=== PATIENT | male | born 1955 | race African-American/Black ===

== ENCOUNTER 2021-02-10 08:22 | Inpatient (IN) | payer OTHER, SELFPAY ==
[2021-02-10] MEDS ORDERED: Lidocaine 1% w/Epinephrine 1:100K 20 ML VIAL ONE (09:59)
[2021-02-10] MEDS ORDERED: Bacitracin 1 PK ONE (10:23)
[2021-02-10] MEDS ORDERED: Acetaminophen 500 MG TAB ONE (10:27)
[2021-02-10] MEDS ORDERED: Ketorolac Tromethamine 30 MG/ML VIAL ONE (10:27)
[2021-02-10] MEDS ORDERED: Ondansetron ODT 4 MG TAB PO PRN (10:50)
[2021-02-10] MEDS ORDERED: Dextrose 5% in Water 1,000 ML IV PRN (10:50)
[2021-02-10] MEDS ORDERED: hydrALAZINE 20 MG/ML VIAL SLOW IVP PRN (10:50)
[2021-02-10] MEDS ORDERED: Dextrose 50% Abboject 50 ML SYRINGE SLOW IVP PRN (10:50)
[2021-02-10] MEDS ORDERED: Ondansetron PF 4 MG/2 ML Vial IVP PRN (10:50)
[2021-02-10] MEDS ORDERED: Rib Fracture Protocol PO SCH (11:00)
[2021-02-10 11:33] LABS: #Lymphocytes 0.8 thou/uL (1.20-3.40); #Monocytes 0.7 thou/uL (0.11-0.59); #Neutrophils 6.9 thou/uL (1.40-6.50); %Basophils 0.2 % (0.0-1.0); %Eosinophils 0.3 % (0.0-10.0); %Lymphocytes 9.1 % (21.0-51.0); %Monocytes 8.7 % (0.0-10.0); %Neutrophils 81.7 % (42.0-75.0); Hemoglobin 14.4 g/dL (14.0-18.0); Mean Corpuscular Hemoglobin 28.8 pg (27.0-31.0); Mean Corpuscular Volume 90.1 fL (78.0-98.0); Mean Platelet Volume 10.9 fL (7.4-10.4); Platelet Count 124 thou/uL (130-400); RBC Distribution Width 12.6 % (11.5-14.5); Red Blood Cell (RBC) Count 5.02 mill/uL (4.70-6.10); White Blood Cell (WBC) Count 8.5 thou/uL (4.8-10.8)
[2021-02-10 11:59] LABS: ALT (SGPT) 19 U/L (8-55); AST (SGOT) 46 U/L (5-34); Albumin 3.7 g/dL (3.4-4.8); Alkaline Phosphatase 63 U/L (40-110); Anion Gap 12 mmol/L (10-20); BUN (Urea Nitrogen) 8 mg/dL (8.4-25.7); Bilirubin, Total 0.7 mg/dL (0.2-1.2); Calc. Creatinine Clearance 0 mL/min (70-130); Calcium 8.4 mg/dL (7.8-10.44); Carbon Dioxide 25 mmol/L (23-31); Chloride 104 mmol/L (98-107); Globulin 2.7 g/dL (2.4-3.5); Glucose 124 mg/dL (80-115); Magnesium 1.9 mg/dL (1.6-2.6); Phosphorus 3.1 mg/dL (2.3-4.7); Potassium 4.6 mmol/L (3.5-5.1); Protein, Total 6.4 g/dL (5.8-8.1); Sodium 136 mmol/L (136-145)
[2021-02-10] MEDS ORDERED: Cyclobenzaprine 10 MG TAB PO PRN ×2 (12:30)
[2021-02-10] MEDS ORDERED: Ibuprofen 600 MG TAB PO SCH (14:00)
[2021-02-10] MEDS ORDERED: Gabapentin 100 MG CAP PO SCH (15:00)
[2021-02-10] MEDS: Gabapentin 300 MG CAP PO SCH ×2 (15:55→21:10)
[2021-02-10] MEDS ORDERED: traMADol HCl 50 MG TAB PO SCH (18:00)
[2021-02-10] MEDS ORDERED: Ibuprofen 800 MG TAB PO SCH (18:00)
[2021-02-10] MEDS: Ibuprofen 200 MG TAB PO SCH ×2 (18:02→23:53)
[2021-02-10] MEDS: Acetaminophen 500 MG TAB PO SCH ×2 (18:02→23:53)
[2021-02-10] MEDS: traMADol HCl 50 MG TAB PO SCH ×2 (18:03→23:54)
[2021-02-10] MEDS: Senokot S 8.6-50 MG TAB PO SCH (21:10)
[2021-02-10] MEDS: Famotidine 20 MG TAB PO SCH (21:10)
[2021-02-11 05:38] LABS: #Eosinphils 0.2 thou/uL (0.0-0.7); #Lymphocytes 1.3 thou/uL (1.20-3.40); #Monocytes 0.8 thou/uL (0.11-0.59); %Basophils 0.7 % (0.0-1.0); %Eosinophils 3.2 % (0.0-10.0); %Lymphocytes 21.2 % (21.0-51.0); %Neutrophils 62.9 % (42.0-75.0); Hemoglobin 14.5 g/dL (14.0-18.0); Mean Corpuscular HGB CONC 32.1 g/dL (32.0-36.0); Mean Corpuscular Hemoglobin 29.4 pg (27.0-31.0); Mean Corpuscular Volume 91.8 fL (78.0-98.0); Mean Platelet Volume 10.2 fL (7.4-10.4); Platelet Count 137 thou/uL (130-400); RBC Distribution Width 12.8 % (11.5-14.5); Red Blood Cell (RBC) Count 4.92 mill/uL (4.70-6.10); White Blood Cell (WBC) Count 6.3 thou/uL (4.8-10.8)
[2021-02-11] MEDS: Acetaminophen 500 MG TAB PO SCH ×4 (05:47→23:14)
[2021-02-11] MEDS: Ibuprofen 200 MG TAB PO SCH ×4 (05:48→23:15)
[2021-02-11] MEDS: traMADol HCl 50 MG TAB PO SCH ×4 (05:48→23:15)
[2021-02-11 05:57] LABS: Anion Gap 9 mmol/L (10-20); BUN (Urea Nitrogen) 13 mg/dL (8.4-25.7); Calc. Creatinine Clearance 79 mL/min (70-130); Calcium 8.6 mg/dL (7.8-10.44); Carbon Dioxide 30 mmol/L (23-31); Chloride 103 mmol/L (98-107); Glucose 106 mg/dL (80-115); Magnesium 2.3 mg/dL (1.6-2.6); Phosphorus 2.8 mg/dL (2.3-4.7); Potassium 4.6 mmol/L (3.5-5.1); Sodium 137 mmol/L (136-145)
[2021-02-11] MEDS: Famotidine 20 MG TAB PO SCH ×2 (10:00→21:04)
[2021-02-11] MEDS: Polyethylene Glycol 3350 17 GM Packet PO SCH (10:02)
[2021-02-11] MEDS: Gabapentin 300 MG CAP PO SCH ×3 (10:02→21:04)
[2021-02-11] MEDS: Senokot S 8.6-50 MG TAB PO SCH ×2 (10:02→21:04)
[2021-02-12] MEDS: Ibuprofen 200 MG TAB PO SCH ×3 (05:43→18:25)
[2021-02-12] MEDS: traMADol HCl 50 MG TAB PO SCH ×3 (05:43→18:25)
[2021-02-12] MEDS: Acetaminophen 500 MG TAB PO SCH ×3 (05:43→18:25)
[2021-02-12] MEDS: Gabapentin 300 MG CAP PO SCH ×3 (08:33→21:25)
[2021-02-12] MEDS: Famotidine 20 MG TAB PO SCH ×2 (08:33→21:25)
[2021-02-12] MEDS: Polyethylene Glycol 3350 17 GM Packet PO SCH (08:34)
[2021-02-12] MEDS: Senokot S 8.6-50 MG TAB PO SCH ×2 (08:35→21:26)
[2021-02-12] MEDS: Cortisporin 1% Opth Oint 3.5 GM TUBE L EYE SCH ×4 (12:55→21:26)
[2021-02-13] MEDS: Acetaminophen 500 MG TAB PO SCH ×4 (00:46→17:25)
[2021-02-13] MEDS: Ibuprofen 200 MG TAB PO SCH ×4 (00:46→17:25)
[2021-02-13] MEDS: Cortisporin 1% Opth Oint 3.5 GM TUBE L EYE SCH ×8 (00:47→19:54)
[2021-02-13] MEDS: traMADol HCl 50 MG TAB PO SCH ×4 (00:47→17:25)
[2021-02-13] MEDS: Gabapentin 300 MG CAP PO SCH ×3 (08:46→19:53)
[2021-02-13] MEDS: Enoxaparin Sodium 40 MG/0.4 ML SYRINGE SC SCH (08:46)
[2021-02-13] MEDS: Famotidine 20 MG TAB PO SCH (08:47)
[2021-02-13] MEDS: Polyethylene Glycol 3350 17 GM Packet PO SCH (10:16)
[2021-02-13] MEDS: Senokot S 8.6-50 MG TAB PO SCH ×2 (10:16→19:54)
[2021-02-14] MEDS: Acetaminophen 500 MG TAB PO SCH ×3 (00:08→12:03)
[2021-02-14] MEDS: Cortisporin 1% Opth Oint 3.5 GM TUBE L EYE SCH ×6 (00:09→14:44)
[2021-02-14] MEDS: traMADol HCl 50 MG TAB PO SCH ×3 (00:09→12:03)
[2021-02-14] MEDS: Ibuprofen 200 MG TAB PO SCH ×3 (00:09→12:03)
[2021-02-14] MEDS: Polyethylene Glycol 3350 17 GM Packet PO SCH (08:13)
[2021-02-14] MEDS: Gabapentin 300 MG CAP PO SCH ×2 (08:13→14:44)
[2021-02-14] MEDS: Enoxaparin Sodium 40 MG/0.4 ML SYRINGE SC SCH (08:13)
[2021-02-14] MEDS: Senokot S 8.6-50 MG TAB PO SCH (08:14)
[2021-02-14 12:56] VITALS: BP 148/82; TEMP 98.5
== END 2021-02-14 14:35 | disposition home or self-care (01) | DRG 200 ==
LOC: ERS 08:22 → SURG B 10:18
PROVIDERS: ADMIT Surgery; ATTEND Surgery
PROC: 0HQGXZZ Repair Left Hand Skin, External Approach (ICD-10-PCS; principal; 2021-02-10)
PROC: 0HQFXZZ Repair Right Hand Skin, External Approach (ICD-10-PCS; 2021-02-10)
DX: S27.0XXA Traumatic pneumothorax, initial encounter (principal); S22.32XA Fracture of one rib, left side, initial encounter for closed fracture; S06.0X9A Concussion with loss of consciousness of unspecified duration, initial encounter; J98.11 Atelectasis; S27.321A Contusion of lung, unilateral, initial encounter; S42.102A Fracture of unspecified part of scapula, left shoulder, initial encounter for closed fracture; S02.2XXA Fracture of nasal bones, initial encounter for closed fracture; S61.412A Laceration without foreign body of left hand, initial encounter; S61.411A Laceration without foreign body of right hand, initial encounter; S50.311A Abrasion of right elbow, initial encounter; T79.7XXA Traumatic subcutaneous emphysema, initial encounter; V49.40XA Driver injured in collision with unspecified motor vehicles in traffic accident, initial encounter
CPT/HCPCS: 12032; 36415; 71045; 80048; 80053; 83735; 84100; 85025; 94760; 96372; G0390; J1650; J1885